=== PATIENT | female | born 1970 | race Caucasian/White ===

== ENCOUNTER 2016-10-15 22:34 | Emergency (ER) | payer SELFPAY ==
[2016-10-15] MEDS ORDERED: SEPTRA DS 8001 TAB PO (23:09)
[2016-10-15 23:25] VITALS: BP 142/81
== END 2016-10-15 23:25 | disposition home or self-care (01) ==
LOC: ED 22:34
DX: L02.31 Cutaneous abscess of buttock (principal); A49.01 Methicillin susceptible Staphylococcus aureus infection, unspecified site; Z86.14 Personal history of Methicillin resistant Staphylococcus aureus infection